=== PATIENT | male | born 1970 | race American Indian/Alaskan Native ===

== ENCOUNTER 2016-09-27 00:37 | Emergency (ER) | payer OTHER ==
[~2016-09-27] VITALS: Ht 170.2 cm; Wt 98.0 kg
[~2016-09-27 00:37] MED LIST: CEPHALEXIN500 MG PO; CLARITIN10 MG PO; CYCLOBENZAPRINE10 MG PO; EPIPEN 2-P0.3 MG/0.3 IM; FLONASE2 SPRAY NS; HYDROCODON-ACE1 EAC8 PO; KEFLEX500 MG PO; LISINOPRIL10 MG PO; MELOXICAM15 MG PO; NAPRELAN750 MG PO; NAPROXEN500 MG PO; NITROGLYCERIN0.4 MG SL; NITROSTAT0.4 MG; NORCO 10-325 T1 EACH PO; NORCO 5-325 TA1 EACH PO; PROVENTIL HFA6.7 GM INH; STOMACH MED; TESSALON PERLE100 MG PO; TRAMADOL HCL50 MG PO; ULTRAM50 MG PO; ZITHROMAX250 MG PO
[2016-09-27] MEDS ORDERED: GABAPENTIN100 MG PO (00:43)
[2016-09-27] MEDS ORDERED: GLUCOPHAGE XR750 MG PO (00:56)
== END 2016-09-27 01:15 | disposition home or self-care (01) ==
LOC: ED 00:37
DX: T78.40XA Allergy, unspecified, initial encounter (principal); M25.512 Pain in left shoulder; G89.29 Other chronic pain; I10 Essential (primary) hypertension; I25.2 Old myocardial infarction; Z90.49 Acquired absence of other specified parts of digestive tract; Z79.899 Other long term (current) drug therapy; Z91.018 Allergy to other foods
CPT/HCPCS: 99283

== ENCOUNTER 2018-04-18 21:11 | Emergency (ER) | payer OTHER ==
[~2018-04-18] VITALS: Ht 170.2 cm; Wt 113.4 kg
[~2018-04-18 21:11] MED LIST changes: +GABAPENTIN100 MG PO; +GLUCOPHAGE XR750 MG PO
--- OUTSIDE RECORDS SUMMARY | 2018-04-18 21:14 | XMS ---
PreManage Notification: AMENA CRESPO Security Inspector Technician Events No recent Security Events currently on file CRITERIA MET - Group Notification CARE PROVIDERS BRANDON CRESPO Physician Muskrat Trapper 09/26/2016-Current PHONE: Unknown Perry De La O MD Treatment Current PHONE: Unknown BRANDON CRESPO Primary Care 09/27/2016-Current PHONE: [phone] CHANG SUN Primary Care 09/27/2016-[facility] PHONE: [phone] Amy Chapman - Case or Manager English Current [facility] PHONE: [phone] Demar Marquez, Primary Care [facility] PHONE: [phone] Renee has no Care Guidelines for this patient. Care History Substance Use/Overdose 04/23/2016 [facility] BE CAREFUL PRESCRIBING NARCOTICS. THIS PATIENT HAS A FAILED PAIN CONTRACT WITH PCP. HE RECEIVED HYDROCODONE FROM A OMER OBRIEN AND THIS WAS FILLED AT [facility] ON 03/19/16. E.D. VISIT COUNT (12 MO.) 2 [facility] TOTAL 2 NOTE: Visits indicate total known visits. ED/C VISIT TRACKING (12 MO.) 04/18/2018 21:11 [facility] [place] TYPE: Emergency COMPLAINT: - COLD SYMPTOMS 09/29/2017 16:04 [facility] [place] TYPE: Emergency COMPLAINT: - INSECT BITE L LEG/MSE TO CLINIC DIAGNOSES: - Insect bite (nonvenomous), left thigh, initial encounter - Bitten or stung by nonvenomous insect and other nonvenomous arthropods, initial encounter INPATIENT VISIT TRACKING (12 MO.) No inpatient visits to display in this time frame [id number]
[2018-04-18] MEDS ORDERED: AUGMENTIN 875-1 EACH PO (23:46)
== END 2018-04-19 00:11 | disposition home or self-care (01) ==
LOC: ED 21:11
DX: J01.90 Acute sinusitis, unspecified (principal); I10 Essential (primary) hypertension; I25.2 Old myocardial infarction; Z90.49 Acquired absence of other specified parts of digestive tract; Z88.5 Allergy status to narcotic agent; Z91.018 Allergy to other foods; Z79.899 Other long term (current) drug therapy
CPT/HCPCS: 99283

== ENCOUNTER 2019-05-19 19:13 | Emergency (ER) | payer OTHER ==
[~2019-05-19] VITALS: Ht 170.2 cm; Wt 113.4 kg
[~2019-05-19 19:13] MED LIST changes: +AUGMENTIN 875-1 EACH PO
--- OUTSIDE RECORDS SUMMARY | 2019-05-19 19:16 | XMS ---
PreManage Notification: AMENA CRESPO Security Sergeant Of Corrections Events No recent Security Events currently on file CRITERIA MET - Group Notification CARE PROVIDERS BRANDON CRESPO 09/27/2016-Current PHONE: Unknown DOCTOR PIERCE Primary Care Current PHONE: Unknown OSCAR CARLTON Primary Care [facility] PHONE: Unknown LANIE ADKINS Primary Care Current PHONE: Unknown Perry De La O MD Treatment Current PHONE: Unknown BRANDON CRESPO Primary Care 09/27/2016-Current PHONE: [phone] CHANG SUN Primary Care 09/27/2016-[facility] PHONE: [phone] Amy Hayes or Finished Cigar Maker [facility] PHONE: [phone] Lanie Adkins [facility] PHONE: [phone] Renee has no Care Guidelines for this patient. Care History Substance Use/Overdose 04/23/2016 [facility] BE CAREFUL PRESCRIBING NARCOTICS. THIS PATIENT HAS A FAILED PAIN CONTRACT WITH PCP. HE RECEIVED HYDROCODONE FROM A OMER OBRIEN AND THIS WAS FILLED AT [facility] ON 03/19/16. E.D. VISIT COUNT (12 MO.) [address] TOTAL 4 NOTE: Visits indicate total known visits. ED/UCC VISIT TRACKING (12 MO.) 05/19/2019 19:14 [facility] [place] TYPE: Emergency COMPLAINT: - ABDOMINAL PAIN/BLOOD IN STOOL 10/24/2018 01:25 [facility] [place] TYPE: Emergency COMPLAINT: - Shortness of breath DIAGNOSES: 1. Allergy, unspecified, initial encounter 2. Exposure to other specified factors, initial encounter 08/09/2018 00:16 [facility] [place] TYPE: Emergency COMPLAINT: - N/V, LEG PAIN - Pain in left knee - Diarrhea, unspecified - Unspecified abdominal pain DIAGNOSES: 1. Pain in left knee 2. Fall in (into) shower or empty bathtub, initial encounter 3. Diarrhea, unspecified 4. Unspecified abdominal pain 07/27/2018 18:17 [facility] [place] TYPE: Emergency DIAGNOSES: - Strain of unsp musc/tend at lower leg level, left leg, init - knee pain INPATIENT VISIT TRACKING (12 MO.) No inpatient visits to display in this time frame [id number]
== END 2019-05-19 21:02 | disposition home or self-care (01) ==
LOC: ED 19:13
DX: K62.5 Hemorrhage of anus and rectum (principal); I10 Essential (primary) hypertension; I25.2 Old myocardial infarction
CPT/HCPCS: 80053; 83690; 85025; 85610; 85730; 99284

== ENCOUNTER 2020-01-20 12:13 | Emergency (ER) | payer OTHER ==
[~2020-01-20] VITALS: Ht 170.2 cm; Wt 113.4 kg
--- OUTSIDE RECORDS SUMMARY | 2020-01-20 12:16 | XMS ---
PreManage Notification: AMENA CRESPO Security Repairer Helper Events No recent Security Events currently on file CRITERIA MET - Group Notification CARE PROVIDERS BRANDON CRESPO Physician Project Surveyor 09/27/2016-Current PHONE: Unknown Renee has no Care Guidelines for this patient. Care History Substance Use/Overdose 04/23/2016 [facility] BE CAREFUL PRESCRIBING NARCOTICS. THIS PATIENT HAS A FAILED PAIN CONTRACT WITH PCP. HE RECEIVED HYDROCODONE FROM A OMER OBRIEN AND THIS WAS FILLED AT [facility] ON 03/19/16. E.Lindsey VISIT COUNT (12 MO.) 2 [facility]. TOTAL 2 NOTE: Visits indicate total known visits. ED/UCC VISIT TRACKING (12 MO.) 01/20/2020 12:13 [facility] [place] TYPE: Emergency COMPLAINT: - SOB 05/19/2019 19:14 [facility] [place] TYPE: Emergency COMPLAINT: - ABDOMINAL PAIN/BLOOD IN STOOL DIAGNOSES: - Hemorrhage of anus and rectum - Essential (primary) hypertension - Old myocardial infarction - Hemorrhage of anus and rectum INPATIENT VISIT TRACKING (12 MO.) No inpatient visits to display in this time frame [id number]
[2020-01-20] MEDS ORDERED: LISINOPRIL20 MG PO (12:29)
[2020-01-20] MEDS ORDERED: VENTOLIN HFA18 GM INH (12:52)
[2020-01-21] MEDS ORDERED: ADVIL200 MG PO (18:06)
== END 2020-01-20 13:19 | disposition home or self-care (01) ==
LOC: ED 12:13
DX: U07.1 COVID-19 (principal); J40 Bronchitis, not specified as acute or chronic; I10 Essential (primary) hypertension; I25.2 Old myocardial infarction; Z88.5 Allergy status to narcotic agent
CPT/HCPCS: 99284

== ENCOUNTER 2020-01-21 17:34 | Inpatient (IN) | payer OTHER ==
[~2020-01-21] VITALS: Ht 170.2 cm; Wt 115.5 kg
[~2020-01-21 17:34] MED LIST changes: +LISINOPRIL20 MG PO; +VENTOLIN HFA18 GM INH
--- OUTSIDE RECORDS SUMMARY | 2020-01-21 17:38 | XMS ---
PreManage Notification: AMENA CRESPO Security Bull Float Finisher Events No recent Security Events currently on file CRITERIA MET - Group Notification - [facility] - 2 Visits in 30 Days CARE PROVIDERS BRANDON CRESPO Physician Slot Machine Key Person 09/27/2016-Current PHONE: Unknown Renee has no Care Guidelines for this patient. Care History Substance Use/Overdose 04/23/2016 [facility] BE CAREFUL PRESCRIBING NARCOTICS. THIS PATIENT HAS A FAILED PAIN CONTRACT WITH PCP. HE RECEIVED HYDROCODONE FROM A [employer] AND THIS WAS FILLED AT [facility] ON 03/19/16. E.D. VISIT COUNT (12 MO.) 3 [facility] TOTAL 3 NOTE: Visits indicate total known visits. ED/UCC VISIT TRACKING (12 MO.) 01/21/2020 17:35 [facility] [place] TYPE: Emergency COMPLAINT: - MULTIPLE COMPLAINTS 01/20/2020 12:13 [facility] [place] TYPE: Emergency COMPLAINT: - SOB 05/19/2019 19:14 [facility] [place] TYPE: Emergency COMPLAINT: - ABDOMINAL PAIN/BLOOD IN STOOL DIAGNOSES: - Hemorrhage of anus and rectum - Essential (primary) hypertension - Old myocardial infarction - Hemorrhage of anus and rectum INPATIENT VISIT TRACKING (12 MO.) No inpatient visits to display in this time frame [id number]
[2020-01-21] MEDS ORDERED: ADVIL200 MG PO (18:06)
--- NOTE | 2020-01-21 23:13 | NUR ---
ASSESSMENT, VS AND I&O COMPLETED. IV WNL, CDI, FLUSHED WELL. SCHEDULED MEDS PROVIDED. GCS 15, A&O X4. LUNGS CLEAR IN ALL LOBES, DIMINISHED IN LOWER LOBES. HEART TONES REGULAR. ABD SOFT, NONTENDER, PT STATES NORMAL, BOWEL TONES ACTIVE. CMS INTACT. SPO2 94% ON 2L NC. SNACKS AND DRINKS PROVIDED. NO OTHER NEEDS AT THIS TIME. CALL LIGHT IN REACH.
--- NOTE | 2020-01-22 02:32 | NUR ---
ASSESSMENT, VS AND I&O COMPLETED. GCS 15, A&O X4. IV WNL. UNABLE TO LISTEN TO LUNGS, HEART AND BOWEL TONES DUE TO PAPR. CMS INTACT. PT STATES HE "FEELS BETTER". NC @ 2L, SPO2 95%. PT DENIES SOB. NO OTHER NEEDS AT THIS TIME. CALL LIGHT IN REACH.
--- NOTE | 2020-01-22 04:05 | NUR ---
PT RESTING IN BED, EYES CLOSED. RR EVEN, UNLABORED. NC @ 2L. CALL LIGHT IN REACH.
--- NOTE | 2020-01-22 08:37 | EKG ---
[facility] [address] [place], [place] [address] Signed Sinus tachycardia Otherwise normal ECG When compared with ECG of 02-MAR-2016 00:48, No significant change was found Confirmed by ZULEYKA CALVERT MD ([id number]) on 01/22/2020 7:17:36 AM Electronically Signed By: ZULEYKA CALVERT MD 01/22/20 0837 PATIENT NAME: AMENA CRESPO SIDRA Electrocardiogram DATE OF : 70 PHYSICIAN: ZULEYKA CALVERT MD REPORT #: [id number] REPORT IS CONFIDENTIAL AND NOT TO BE RELEASED WITHOUT AUTHORIZATION
--- NOTE | 2020-01-22 10:26 | NUR ---
PATIENT IND IN ROOM. CALL LIGHT IN REACH. NO FURTHER NEEDS AT THIS TIME. AM CARE AND ORAL CARE ITEMS PROVIDED.
--- NOTE | 2020-01-22 13:58 | NUR ---
PT UP TO BATHROOM, SPOT CHECK O2-88-91% ON 2L/NC. O2 INCREASED TO 3L/NC AFTER SPEAKING WITH DR VÁSQUEZ. PT DOES USE INCENTIVE SPIROMETER BUT C/O FATIGUE WITH MUCH ACTIVITY. GOOD APPETITE, AND TAKING FLUIDS WELL.
--- NOTE | 2020-01-22 14:00 | NUR ---
O2 4L/NC, PT SITTING UP AT BEDSIDE, C/O HAVING TROUBLE TAKING DEEP BREATH, C/O FEELING TORED AND WEAK. CONT. TO BE INDEP IN ROOM, ENC. PT TO REST AND POSITION FOR EASY BREATHING, HOB 45 DEG. CALL LIGHT IN EASY REACH.
--- NOTE | 2020-01-22 18:00 | NUR ---
PT PLACED ON OXYMASK 10 L, OXIMETER 94-95% PER RT RECOMMENDATION. PT EATING DINNER. BUT IS HAVING INCREASED ANXIETY.
--- NOTE | 2020-01-22 19:00 | NUR ---
SPOKE WITH DR CHA ABOUT PT NEEDING INCREASED O2 AND OXYMASK, HE WILL BE DOWN TO ASSESS PT.
--- NOTE | 2020-01-22 19:30 | NUR ---
CALL PLACED TO RT TO HAVE THEM ASSESS PT, HE CONT. TO C/O SOB AND WEAKNESS.
--- NOTE | 2020-01-22 19:40 | NUR ---
REPORT RECEIVED FROM DAY SHIFT RN. DR. CHA ORDERED STAT ABG. RT IN ROOM TO DRAW. DR. CHA TO FLOOR TO ASSESS PT. ORDERED PT TO TRANSFER TO CCU. PT LYING IN BED AT THIS TIME. SpO2 94% ON 10L/OXY MASK. HR 100'S.
--- NOTE | 2020-01-22 20:30 | NUR ---
PATIENT MOVED FROM MS TO CCU. PATIENT SWITCHED TO VAPOTHERM AT 25L 60% Fi02 BY AAMIR ARRIAGA. EDUCATION DONE FOR PRONING. ASSISTED PATIENT INTO PRONE POSITION WHICH HE APPEARS TO TOLERATE WELL. VS STABLE. RT AT BEDSIDE. CALL LIGHT IN REACH.
--- NOTE | 2020-01-22 20:39 | NUR ---
REPORT GIVEN TO CCU RN. CCU RN AND [place] OG TRASFERRED PT TO CCU AT THIS TIME.
--- NOTE | 2020-01-22 21:15 | NUR ---
PATIENT UP TO BEDSIDE TO VOID AND THEN BACK TO PRONE POSITION. PATIENT FELT SOB AND ANXIOUS. O2 SATS 86%, QUICKLY IMPROVED ABOUT 90% ON VAPOTHERM 25L 60% Fi02. PATIENT HAS CELLPHONE IN HAND AND CALL LIGHT IN REACH. LIGHTS DIMMED. PATIENT WILL CALL FOR ANY CONERNS OR NEEDS. AGREES TO PRONE LONG POSSIBLE.
--- NOTE | 2020-01-22 23:11 | NUR ---
PROVIDED PATIENT WITH FRESH ICE WATER. PATIENT TOLERATING PRONE POSITION WATCHING VIDEOS ON HIS PHONE. PATIENT OFFERED TO REPOSITION BUT PATIENT STATES "I WANT TO GET BETTER, I'LL STAY LIKE THIS".
--- NOTE | 2020-01-23 02:00 | NUR ---
PATIENT CONTINUES TO TOLERATE CURRENT VAPOTHERM SETTINGS, O2 SAT 94%, RR 20. VAPOTHERM 25L 60% Fi02. PATIENT OUT OF PRONE POSITION.
--- NOTE | 2020-01-23 05:18 | NUR ---
PATIENT ASLEEP. URINAL EMPTIED OF 300ML OF YELLOW CLEAR URINE.
--- NOTE | 2020-01-23 06:00 | NUR ---
MORNING LABS DRAWN. PATIENT IN PRONE POSITION. TOLERATING WELL. VAPOTHERM 25L 60% Fi02. RR 16-18. PATIENT AFEBRILE.
--- NOTE | 2020-01-23 07:00 | NUR ---
Report received, orders acknowledged.
--- NOTE | 2020-01-23 07:47 | NUR ---
RT in room to administer breathing tx
--- NOTE | 2020-01-23 08:00 | NUR ---
PATIENT RESTING IN BED WAITING FOR BREAKFAST. CALL LIGHT WITHIN REACH NO FUTHER NEEDS AT THIS TIME.
--- NOTE | 2020-01-23 08:00 | NUR ---
Patient laying on left side with vapotherm in place. Settings of 25L and 60% FiO2 with an SpO2 in the mid to low 90's. Vital signs taken, assessment complete. Patient sits up at edge of bed, SOB with exertion. Patient encouraged to use IS, 250 mls noted with IS. Patient has many questions regarding coronavirus, intubation, and medications. All questions answered to best of ability. Dry cough noted. Patient eating breakfast. AM medications given, IV remdesivir infusing. Denies needs at this time, call light within reach.
--- NOTE | 2020-01-23 09:45 | NUR ---
PATIENT LINENS CHANGED. FACE WASHED AND ORAL CARE DONE. PARTIAL BED BATH COMPLETE. CALL LIGHT WITHIN REACH. NO FUTHER NEEDS AT THIS TIME.
--- NOTE | 2020-01-23 10:40 | NUR ---
Dr. Urbano in room to assess patient and discuss POC
--- NOTE | 2020-01-23 11:00 | NUR ---
Patient vapotherm settings adjusted to 55% FiO2 from 60% and remains at 25L. Patient laying in prone position, SpO2 in the upper 90's. Denies needs at this time, call light within reach.
--- NOTE | 2020-01-23 12:20 | NUR ---
Lunch delivered, patient sitting up at edge of bed with feet on floor. Vapotherm in place, settings at 25L and 55% FiO2. SpO2 in the mid-90's. Patient denies pain or SOB. Urinal emptied of 250 mls of sheba urine. Denies needs, call light within reach.
--- NOTE | 2020-01-23 13:00 | NUR ---
RT in room adjusting vapotherm settings. Currently settings now at 5.0L and 100% FiO2. SpO2 in the upper 90's. No work of breathing noted, patient denies SOB. Will continue to monitor patient with new vapotherm settings.
--- NOTE | 2020-01-23 14:38 | NUR ---
Patient laying on left side, respirations even and unlabored. Vapotherm settings at 5.0L and 100% Fi02, SpO2 ranging from 95-98%. Patient denies SOB and states "I feel better now than I did earlier!" Patient smiling and in good spirits. Denies needs at this time, call light within reach.
--- NOTE | 2020-01-23 15:31 | NUR ---
Patient proning in bed with vapotherm in place. Settings at 5.0L and 100% FiO2, SpO2 of 98%. Call light within reach.
--- NOTE | 2020-01-23 17:30 | NUR ---
Patient proning in bed with vapotherm in place, 5.0L and 100% FiO2, SpO2 of 99%. Dinner delivered. Vital signs taken, assessment complete. Patient reports SOB improved from earlier this AM. Denies needs at this time, call light within reach.
--- NOTE | 2020-01-23 18:46 | NUR ---
Patient laying in prone position. Vapotherm in place with settings of 5.0L and 100% FiO2, SpO2 of 99%. Denies needs, call light within reach.
--- NOTE | 2020-01-23 20:35 | NUR ---
PT KNEELING IN BED AFTER VOIDING, GETTING READY TO PRONE AGAIN. STATES WAS SOB WITH EXERTION OF CHANGING POSITION AND VOIDING. BP TAKEN WHILE PT KNEELING AND WAS 181/93. STATES DOES HAVE HX OF HTN. SL RAC LEAKING WHEN FLUSHED, DC'D. SATS DID BREIFLY DEC TO 89 WHEN PT FIRST GOT INTO PRONE POSITION BUT BACK TO UPPPER 90'S WITHIN MINUTES.
--- NOTE | 2020-01-23 21:48 | NUR ---
IS NOW LAYING ON L SIDE, SATS 94-95%.
--- NOTE | 2020-01-23 22:30 | NUR ---
PATIENT TOLERATING VAPOTHERM AT 5L 100% Fi02. PATIENT IS INDEPENDENT TO THE BEDSIDE TO VOID AND CONTINUES TO TANGLE HIS CORDS WHEN HE IS UP. ASSISTED PATIENT TO REMOVE CARDIAC LEADS AND BP CUFF AT THIS TIME. PULSE OX IN PLACE. TITRATED TO HIGH FLOW NC AT 8L. PATIENT TOLERATED WELL. WILL CONTINUE TO MONITOR.
--- NOTE | 2020-01-23 22:57 | NUR ---
UPDATE GIVEN TO
--- NOTE | 2020-01-24 02:53 | NUR ---
PT ARRIVED FROM CCU AT AROUND 0230. V/S AT THIS TIME ARE WDL, PT ON 6L O2 HIGH FLOW. NO NEW CONCERNS NOTED AT THIS TIME.
--- NOTE | 2020-01-24 03:33 | NUR ---
PT IN BED. CURTAIN PULLED. O2 SATS AT 97% 6L O2 HIGH FLOW.
--- NOTE | 2020-01-24 05:00 | NUR ---
PT OVERALL HAD AN UNEVENTFUL NIGHT. V/S ARE WDL. PT HAS REMAINED ON 6L HIGH FLOW NC. LOBES ARE CLEAR BUT DIMINISHED IN THE BASES. PT IS PRONING SELF TO THE BEST OF HIS ABILITY. NO NEW CONCERNS WERE NOTED THIS SHIFT.
--- NOTE | 2020-01-24 09:00 | NUR ---
PT SITTING UP IN BED 02 TURNED DOWN TO 3LPM VIA NC. REMAINED WITH PT FOR ASSESSMENT AND CHANRTING. SATS REMAIN AT 94% PT ABLE TO DEMONSTRATE USE OF I/S ENCOURAGED HIM TO CONTINUE TO USE IT AT REGULAR INTERVALS AND BE UP OUT OF BED. PT VERBALIZES UNDERSTANDING.
--- NOTE | 2020-01-24 10:30 | NUR ---
SATS REMAIN AT 93% PT DENIES ANY SOB OR DISCOMFORTS. TOLERATES 100% OF MORNING MEAL SIVA FURTHER NEEDS OF. PT TO SHOWER WELL TOLERATED. PERSONAL CARE ITEMS PROVIDED.
--- NOTE | 2020-01-24 10:36 | NUR ---
PATIENT UP TO SHOWER, SBA. LINENS CHANGED. NEW GOWN AND SOCKS PROVIDED. PATIENT IND IN SHOWER. AM CARE, ORAL CARE, SKIN CARE, SHAMPOO, SHAVE, ANJELICA CARE DONE. RN IN ROOM BEFORE SHOWER, PATIENT STATING BETWEEN 91 AND 92 ON 2.5L OF O2. RN BUMPED PATIENT UP TO 3L O2 FOR SHOWER. PATIENT NOW BACK TO BED. CALL LIGHT IN REACH. NO FURTHER NEEDS AT THIS ITME.
[2020-01-24] MEDS ORDERED: ZESTRIL20 MG PO (11:59)
--- NOTE | 2020-01-24 12:00 | NUR ---
MED REC COMPLETE
--- NOTE | 2020-01-24 13:00 | NUR ---
DR CHA IN TO SEE PT, HE IS UP INDEPENDANTLY IN THE ROOM. PLAN OF CARE DISCUSSED ALL QUESTIONS ANSWERED. PT SATS 95% ON 2L 02NC
--- NOTE | 2020-01-24 14:01 | NUR ---
UNABLE TO VISIT DUE TO PRECAUTIONS, WILL FOLLOW NEEDED
--- NOTE | 2020-01-24 15:25 | NUR ---
PT SATS MID TO HIGH 90'S 02 TITRATED TO 2 LPM. CONTINUES TO MAINTAIN SATS MID 90'S. PT STATES HE FEELS WELL ENOUGH TO GO HOME, BUT UNDERSTANDS HE NEEDS ANOTHER DOSE OF REMDESAVERE FIRST, HE ANTICIPATES GOING TOMORROW. ENCOURAGED HIM TO CONTINUE TO USE I/S AND WILL TITRATE 02 FURTHER THIS AFTERNOON.
--- NOTE | 2020-01-24 17:14 | NUR ---
PT CONTINUES TO SAT MID 90'S ON 2 LNC. UP IN ROOM STATES HE FEELS FINE, AND IS ANXIOUS TO GO HOME TOMORROW. EVENING MEAL IS ORDERED
--- NOTE | 2020-01-24 18:02 | NUR ---
PATIENT IND IN ROOM. PATIENT NOW BACK TO BED WATCHING TV. CALL LIGHT IN REACH. NO FURTHER NEEDS AT THIS TIME.
--- NOTE | 2020-01-24 20:00 | NUR ---
V/S ARE WDL, PT NOW ON RA FOR A TRAIL AND SATING AROUND 91%. ALL LOBES ARE CLEAR OVERALL AND NO OTHER ISSUES WERE NOTED WITH THE ASSESSMENT. PT HAS NC AT BEDSIDE IF NEEDED. WILL CONTINUE TO MONITOR.
--- NOTE | 2020-01-24 20:47 | NUR ---
PT O2 SATS FELL TO 87% ON RA. PT IS BACK ON 2L HIGH FLOW NC WITH O2 SATS NOW IN THE MID 'S.
--- NOTE | 2020-01-24 22:00 | NUR ---
PT AT THIS TIME IS SLEEPING WITH NC ON 2L. NO NEW ISSUES NOTED AT THIS TIME.
--- NOTE | 2020-01-25 00:06 | NUR ---
PT IS SLEEPING. NO NEW CONCERNS NOTED.
--- NOTE | 2020-01-25 02:50 | NUR ---
PT IS STILL SLEEPING WITH O2 SATS AT 94% ON THE HIGH FLOW CANNULA.
--- NOTE | 2020-01-25 04:03 | NUR ---
PT IS SLEEPING AT THIS TIME.
--- NOTE | 2020-01-25 07:20 | NUR ---
PT DID FAIL RA TRIAL AT START OF SHIFT. PT HAS REMAINED ON 1L O2 NC SINCE THEN IS DOING WELL. NO OTHER ISSUES WERE NOTED LAST NIGHT.
--- NOTE | 2020-01-25 08:02 | NUR ---
PT RESTING IN BED ENCOURAGED TO GET UP TO THE CHAIR USE I/S AND PREPARE TO TRY ROOM AIR. PT VERBALIZES UNDERSTANDING. DENIES SOB OR DISCOMFORTS.
--- NOTE | 2020-01-25 08:30 | NUR ---
Call from Kenzie at [facility] clinic they have contact [facility] for O2. NOtified I have not been to report yet, and I am unsure if pt will need or or will dc today. Discussed I will call her after report and after Dr. Urbano has made rounds.
--- NOTE | 2020-01-25 09:44 | NUR ---
PT TOLERATING RA, SATS 92-95% AGREES HE IS READY TO GO HOME. PERSONAL CARE ITEMS PROVIDED, PT DENIES OTHER NEEDS.
[2020-01-25] MEDS ORDERED: DEXAMETHASONE6 MG PO (10:21)
--- NOTE | 2020-01-25 10:24 | NUR ---
Requested 02 qualifier and notified by Rn, pt has been off 02 since during the night and is sating at 93% on RA. Dr Urbano cancelled the qualifier. Spoke with Costa and he states he has been doing well. Was sick on Jan.07 and has been in isolation since that time. Plans on returning home today and his will pick him up. Denies any needs plans on dc today.
--- NOTE | 2020-01-25 10:28 | NUR ---
Called Kenzie at [facility], updated pt is no longer requiring 02 and plans on dc to home today, his will transport him.
--- NOTE | 2020-01-25 11:36 | NUR ---
PT CONTINUED TO SAT MID TO HIGH 90'S ON ROOM AIR ALL MORNING. DENIES SOB, STATES HE FEELS WELL DENIES CONCERNS R/T DC. PT ENCOURAGED TO PHONE MED-SURG IF HE HAS ANY F/U QUESTIONS LATER. PT VERBALIZES UNDERSTANDING OF DC INSTRUCTIONS. AGREES TO TAKE RX PRESCRIBED VERBALIZES UNDERSTANDING OF WHY. MASK PROVIDED. PT ENCOURAGED STRONGLY TO CONTINUE QUARANTINE TO NOT PASS COVID TO OTHERS
== END 2020-01-25 11:20 | disposition home or self-care (01) | DRG 177 ==
LOC: ED 17:34 → MS 20:16 → CCU 01-22 20:41 → MS 01-24 02:47
PROVIDERS: ADMIT Internal Medicine; ATTEND Internal Medicine
PROC: XW033E5 Introduction of Remdesivir Anti-infective into Peripheral Vein, Percutaneous Approach, New Technology Group 5 (ICD-10-PCS; principal; 2020-01-21)
PROC: XW033E5 Introduction of Remdesivir Anti-infective into Peripheral Vein, Percutaneous Approach, New Technology Group 5 (ICD-10-PCS; 2020-01-22)
PROC: XW033E5 Introduction of Remdesivir Anti-infective into Peripheral Vein, Percutaneous Approach, New Technology Group 5 (ICD-10-PCS; 2020-01-23)
PROC: XW033E5 Introduction of Remdesivir Anti-infective into Peripheral Vein, Percutaneous Approach, New Technology Group 5 (ICD-10-PCS; 2020-01-24)
PROC: XW033E5 Introduction of Remdesivir Anti-infective into Peripheral Vein, Percutaneous Approach, New Technology Group 5 (ICD-10-PCS; 2020-01-25)
DX: U07.1 COVID-19 (principal); J12.89 Other viral pneumonia; J96.01 Acute respiratory failure with hypoxia; I10 Essential (primary) hypertension; I25.2 Old myocardial infarction; I25.10 Atherosclerotic heart disease of native coronary artery without angina pectoris; Z79.899 Other long term (current) drug therapy; Z88.5 Allergy status to narcotic agent
CPT/HCPCS: 71045; 80048; 80053; 82803; 83605; 83615; 83735; 83880; 84484; 85025; 85379; 90686; 93005; 93010; 94640; 94762; 94799; 96374; 99285-25; J1100; J1650; J7030; J7050; J8540

== ENCOUNTER 2020-04-01 18:48 | Emergency (ER) | payer OTHER ==
[~2020-04-01] VITALS: Ht 170.2 cm; Wt 113.4 kg
[~2020-04-01 18:48] MED LIST changes: +ADVIL200 MG PO; +DEXAMETHASONE6 MG PO; +ZESTRIL20 MG PO
--- OUTSIDE RECORDS SUMMARY | 2020-04-01 18:50 | XMS ---
PreManage Notification: AMENA CRESPO Security Barrel Bung Remover And Dumper Events No recent Security Events currently on file CRITERIA MET - Group Notification CARE PROVIDERS BRANDON CRESPO Physician Housekeeping And Laundry Team Leader 09/27/2016-Current PHONE: Unknown Renee has no Care Guidelines for this patient. Care History Medical/Surgical 01/24/2020 [facility] - PATIENT IS [facility] ELIGIBLE, \T\middot;\T\nbsp; PLEASE REFER PATIENT TO [facility] FOR NON EMERGENT MEDICAL NEEDS. \T\middot;\T\nbsp; [facility] CAN SEE PATIENTS SAME DAY FOR APTS IF PATIENT CALLS FIRST THING IN THE MORNING. Substance Use/Overdose 04/23/2016 [facility] BE CAREFUL PRESCRIBING NARCOTICS. THIS PATIENT HAS A FAILED PAIN CONTRACT WITH PCP. HE RECEIVED HYDROCODONE FROM A OMER OBRIEN AND THIS WAS FILLED AT [facility] ON 03/19/16. E.D. VISIT COUNT (12 MO.) [address] [place] [address] TOTAL 4 NOTE: Visits indicate total known visits. ED/UCC VISIT TRACKING (12 MO.) 04/01/2020 18:[address] [facility] [place] TYPE: Emergency COMPLAINT: - INJURED FINGER 01/21/2020 17:[address] [facility] TYPE: Emergency COMPLAINT: - MULTIPLE COMPLAINTS 01/20/2020 12:[address] [facility] TYPE: Emergency COMPLAINT: - SOB DIAGNOSES: - Old myocardial infarction - Shortness of breath - Allergy status to narcotic agent - COVID-19 - Bronchitis, not specified as acute or chronic - Essential (primary) hypertension 05/19/2019 19:14 [facility] [place] TYPE: Emergency COMPLAINT: - ABDOMINAL PAIN/BLOOD IN STOOL DIAGNOSES: - Hemorrhage of anus and rectum - Essential (primary) hypertension - Old myocardial infarction - Hemorrhage of anus and rectum INPATIENT VISIT TRACKING (12 MO.) 01/21/2020 20:16 [facility] [place] TYPE: Medical Surgical COMPLAINT: - HYPOXEMIA, COVID 19 DIAGNOSES: - Other care home (current) drug therapy - Acute respiratory failure with hypoxia - Other viral pneumonia - Allergy status to narcotic agent - COVID-19 - Old myocardial infarction - Atherosclerotic heart disease of [place] coronary artery without angina pectoris - Shortness of breath - Essential (primary) hypertension [email or web address]
== END 2020-04-01 20:01 | disposition home or self-care (01) ==
LOC: ED 18:48
DX: S60.141A Contusion of right ring finger with damage to nail, initial encounter (principal); W22.8XXA Striking against or struck by other objects, initial encounter; I10 Essential (primary) hypertension; I25.2 Old myocardial infarction; Z88.5 Allergy status to narcotic agent; Z79.899 Other long term (current) drug therapy
CPT/HCPCS: 11740; 99283-25

== ENCOUNTER 2020-09-16 05:34 | Emergency (ER) | payer OTHER ==
[~2020-09-16] VITALS: Ht 170.2 cm; Wt 113.4 kg
--- OUTSIDE RECORDS SUMMARY | 2020-09-16 05:38 | XMS ---
PreManage Notification: AMENA CRESPO Security Dermatologist Managing Partner Events No recent Security Events currently on file CRITERIA MET - Group Notification CARE PROVIDERS BRANDON CRESPO Physician Electrical And Instrumentation Mechanic 09/27/2016-Current PHONE: Unknown Renee has no Care Guidelines for this patient. Care History Substance Use/Overdose 04/23/2016 [facility] BE CAREFUL PRESCRIBING NARCOTICS. THIS PATIENT HAS A FAILED PAIN CONTRACT WITH PCP. HE RECEIVED HYDROCODONE FROM A [employer] [facility] AND THIS WAS FILLED AT [facility] ON 03/19/16. Medical/Surgical 01/24/2020 [facility] - PATIENT IS [facility] ELIGIBLE, \T\middot;\T\nbsp; PLEASE REFER PATIENT TO [facility] FOR NON EMERGENT MEDICAL NEEDS. \T\middot;\T\nbsp; [facility] CAN SEE PATIENTS SAME DAY FOR APTS IF PATIENT CALLS FIRST THING IN THE MORNING. E.D. VISIT COUNT (12 MO.) [address] [place] [address] TOTAL 4 NOTE: Visits indicate total known visits. ED/UCC VISIT TRACKING (12 MO.) 09/16/2020 05:[address] 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 - Striking against or struck by other objects, initial encounter - Allergy status to narcotic agent - Old myocardial infarction - Pain in right finger(s) 01/21/2020 17:35 [facility] [place] TYPE: Emergency COMPLAINT: - MULTIPLE COMPLAINTS 01/20/2020 12:13 [facility] [place] TYPE: Emergency COMPLAINT: - SOB DIAGNOSES: - Old myocardial infarction - Allergy status to narcotic agent - Shortness of breath - Allergy status to narcotic agent - RINKUID- - Bronchitis, not specified as acute or chronic - Essential (primary) hypertension INPATIENT VISIT TRACKING (12 MO.) 01/21/2020 20:16 [facility] [place] TYPE: Medical Surgical COMPLAINT: - HYPOXEMIA, COVID 19 DIAGNOSES: - Other long wall mining machine helper (current) drug therapy - Acute respiratory failure with hypoxia - Other viral pneumonia - Allergy status to narcotic agent - COVID-19 - Old myocardial infarction - Atherosclerotic heart disease of [place] coronary artery without angina pectoris - Shortness of breath - Allergy status to narcotic agent - Essential (primary) hypertension [id number]
--- NOTE | 2020-09-16 18:57 | EKG ---
[facility] [address] [facility] [place] [address] Signed Normal sinus rhythm Normal ECG When compared with ECG of 21-JAN-2020 18:59, No significant change was found Confirmed by ZULEYKA CALVERT MD ([id number]) on 09/16/2020 6:57:00 PM Electronically Signed By: ZULEYKA CALVERT MD 09/16/201856 PATIENT NAME: AMENA CRESPO SIDRA Electrocardiogram DATE OF : 70 PHYSICIAN: ZULEYKA CALVERT MD REPORT #: [id number] REPORT IS CONFIDENTIAL AND NOT TO BE RELEASED WITHOUT AUTHORIZATION
== END 2020-09-16 07:30 | disposition home or self-care (01) ==
LOC: ED 05:34
DX: R07.2 Precordial pain (principal); I10 Essential (primary) hypertension; I25.2 Old myocardial infarction; Z86.16 Personal history of COVID-19; Z88.5 Allergy status to narcotic agent; Z79.899 Other long term (current) drug therapy
CPT/HCPCS: 71045; 80053; 83735; 84484; 85025; 93005; 93010; 99285-25

== ENCOUNTER 2020-11-05 19:46 | Emergency (ER) | payer OTHER ==
[~2020-11-05] VITALS: Ht 170.2 cm; Wt 113.4 kg
--- OUTSIDE RECORDS SUMMARY | 2020-11-05 19:54 | XMS ---
PreManage Notification: AMENA CRESPO Security Sales Agent Business Services Events No recent Security Events currently on file CRITERIA MET - Group Notification CARE PROVIDERS BRANDON CRESPO Physician Aquatic Physiotherapist 09/27/2016-Current PHONE: Unknown Renee has no Care Guidelines for this patient. Care History Substance Use/Overdose 04/23/2016 [facility] BE CAREFUL PRESCRIBING NARCOTICS. THIS PATIENT HAS A FAILED PAIN CONTRACT WITH PCP. HE RECEIVED HYDROCODONE FROM A [employer] AND THIS WAS FILLED AT [facility] ON 03/19/16. Medical/Surgical 01/24/2020 [facility] - PATIENT IS [facility] ELIGIBLE, \T\middot;\T\nbsp; PLEASE REFER PATIENT TO [facility] FOR NON EMERGENT MEDICAL NEEDS. \T\middot;\T\nbsp; [facility] CAN SEE PATIENTS SAME DAY FOR APTS IF PATIENT CALLS FIRST THING IN THE MORNING. E.D. VISIT COUNT (12 MO.) 5 [facility] TOTAL 5 NOTE: Visits indicate total known visits. ED/UCC VISIT TRACKING (12 MO.) 11/05/2020 19:46 [facility] [place] TYPE: Emergency COMPLAINT: - MULTIPLE BEE STINGS 09/16/2020 05:[address] [facility] [address] [facility] [place] TYPE: Emergency COMPLAINT: - IRREGULAR HEART BEAT, CHEST PAIN DIAGNOSES: - Old myocardial infarction - Precordial pain - Essential (primary) hypertension - Other long-term (current) drug therapy - Allergy status to narcotic agent 04/01/2020 18:49 [facility] [place] TYPE: Emergency COMPLAINT: - INJURED FINGER DIAGNOSES: - Contusion of right ring finger with damage to nail, initial encounter - Essential (primary) hypertension - Other long-term (current) drug therapy - Striking against or [...] - Allergy status to narcotic agent - COVID- - Bronchitis, not specified as acute or chronic - Essential (primary) hypertension INPATIENT VISIT TRACKING (12 MO.) 01/21/2020 20:16 [facility] [place] TYPE: Medical Surgical COMPLAINT: - HYPOXEMIA, COVID 19 DIAGNOSES: - Other long-term (current) drug therapy - Acute respiratory failure with hypoxia - Other viral pneumonia - Allergy status to narcotic agent - COVID-19 - Old myocardial infarction - Atherosclerotic heart disease of [place] coronary artery without angina pectoris - Shortness of breath - Allergy status to narcotic agent - Essential (primary) hypertension [email or web address]
== END 2020-11-05 20:06 | disposition home or self-care (01) ==
LOC: ED 19:46
DX: T63.461A Toxic effect of venom of wasps, accidental (unintentional), initial encounter (principal); I10 Essential (primary) hypertension; I25.2 Old myocardial infarction; Z88.5 Allergy status to narcotic agent; Z79.899 Other long term (current) drug therapy
CPT/HCPCS: 99282; Q0163

== ENCOUNTER 2021-04-24 09:57 | Emergency (ER) | payer OTHER ==
[~2021-04-24] VITALS: Ht 170.2 cm; Wt 113.4 kg
--- OUTSIDE RECORDS SUMMARY | 2021-04-24 10:00 | XMS ---
PreManage Notification: AMENA CRESPO Security Toolroom Helper Events No recent Security Events currently on file CRITERIA MET - Group Notification CARE PROVIDERS BRANDON CRESPO Physician Newspaper Clipper 09/27/2016-[facility] PHONE: Unknown [facility]/[place] 11/07/2020-[facility] PHONE: [phone] Renee has no Care Guidelines for this patient. Care History Medical/Surgical 01/24/2020 [facility] - PATIENT IS [facility] ELIGIBLE, \T\middot;\T\nbsp; PLEASE REFER PATIENT TO [facility] FOR NON EMERGENT MEDICAL NEEDS. \T\middot;\T\nbsp; [facility] CAN SEE PATIENTS SAME DAY FOR APTS IF PATIENT CALLS FIRST THING IN THE MORNING. Substance Use/Overdose 04/23/2016 [facility] BE CAREFUL PRESCRIBING NARCOTICS. THIS PATIENT HAS A FAILED PAIN CONTRACT WITH PCP. HE RECEIVED HYDROCODONE FROM A [employer] AND THIS WAS FILLED AT [facility] ON 03/19/16. E.D. VISIT COUNT (12 MO.) 3 [facility] TOTAL 3 NOTE: Visits indicate total known visits. 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
[2021-04-24] MEDS ORDERED: CEPHALEXIN500 MG PO (10:45)
== END 2021-04-24 10:54 | disposition home or self-care (01) ==
LOC: ED 09:57
DX: L03.312 Cellulitis of back [any part except buttock and flank] (principal); I10 Essential (primary) hypertension; I25.2 Old myocardial infarction; Z86.16 Personal history of COVID-19; Z88.5 Allergy status to narcotic agent; Z91.010 Allergy to peanuts; Z79.899 Other long term (current) drug therapy
CPT/HCPCS: 99283; A9270

== ENCOUNTER 2021-06-26 17:44 | Emergency (ER) | payer OTHER ==
[~2021-06-26] VITALS: Ht 170.2 cm; Wt 113.4 kg
--- OUTSIDE RECORDS SUMMARY | 2021-06-26 17:46 | XMS ---
PreManage Notification: AMENA CRESPO Security Sales Attendant Events No recent Security Events currently on file CRITERIA MET - Group Notification - [facility] C[facility] PROVIDERS BRANDON CRESPO Physician Psychology Teacher 09/27/2016-[facility] PHONE: Unknown [facility]/[place] 11/07/2020-[facility] PHONE: [phone] Renee has no Care Guidelines for this patient. Care History Substance Use/Overdose 04/23/2016 [facility] BE CAREFUL PRESCRIBING NARCOTICS. THIS PATIENT HAS A FAILED PAIN CONTRACT WITH PCP. HE RECEIVED HYDROCODONE FROM A [employer] [facility] AND THIS WAS FILLED AT [facility] ON 03/19/16. Medical/Surgical 01/24/2020 [facility] - PATIENT IS [facility] ELIGIBLE, \T\middot;\T\nbsp; PLEASE REFER PATIENT TO [facility] FOR NON EMERGENT MEDICAL NEEDS. \T\middot;\T\nbsp; [facility] CAN SEE PATIENTS SAME DAY FOR APTS IF PATIENT CALLS FIRST THING IN THE MORNING. E.D. VISIT COUNT (12 MO.) [address] [facility] TOTAL 4 NOTE: Visits indicate total known visits. 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 [facility] [place] TYPE: Emergency COMPLAINT: - IRREGULAR HEART BEAT, CHEST PAIN DIAGNOSES: - Old myocardial infarction - Precordial pain - Essential (primary) hypertension - Other custodial (current) drug therapy - Allergy status to narcotic agent INPATIENT VISIT TRACKING (12 MO.) No inpatient visits to display in this time frame [id number]
[2021-06-26] MEDS ORDERED: HYDROCODON-ACE1 EAC8 PO (18:21)
[2021-06-26] MEDS ORDERED: PREDNISONE20 MG PO (18:21)
[2021-06-26] MEDS ORDERED: CLINDAMYCIN HC300 MG PO (18:21)
== END 2021-06-26 19:06 | disposition home or self-care (01) ==
LOC: ED 17:44
DX: K04.7 Periapical abscess without sinus (principal); I10 Essential (primary) hypertension; I25.2 Old myocardial infarction; Z88.5 Allergy status to narcotic agent; Z79.899 Other long term (current) drug therapy; Z91.018 Allergy to other foods
CPT/HCPCS: 99282

== ENCOUNTER 2021-10-04 17:26 | Emergency (ER) | payer OTHER ==
[~2021-10-04] VITALS: Ht 170.2 cm; Wt 117.9 kg
[~2021-10-04 17:26] MED LIST changes: +CLINDAMYCIN HC300 MG PO; +PREDNISONE20 MG PO
--- OUTSIDE RECORDS SUMMARY | 2021-10-04 17:28 | XMS ---
PreManage Notification: AMENA CRESPO Security Dry Starch Supervisor Events No recent Security Events currently on file CRITERIA MET - PDMP - Group Notification CARE PROVIDERS BRANDON CRESPO Physician Automation Qa Lead 09/27/2016-[facility] PHONE: Unknown [facility]/[place] 11/07/2020-[facility] PHONE: [phone] Renee has no Care Guidelines for this patient. Care History Substance Use/Overdose 04/23/2016 [facility] BE CAREFUL PRESCRIBING NARCOTICS. THIS PATIENT HAS A FAILED PAIN CONTRACT WITH PCP. HE RECEIVED HYDROCODONE FROM A [employer] OBRIEN AND THIS WAS FILLED AT [facility] ON 03/19/16. Medical/Surgical 01/24/2020 [facility] - PATIENT IS [facility] ELIGIBLE, \T\middot;\T\nbsp; PLEASE REFER PATIENT TO [facility] FOR NON EMERGENT MEDICAL NEEDS. \T\middot;\T\nbsp; [facility] CAN SEE PATIENTS SAME DAY FOR APTS IF PATIENT CALLS FIRST THING IN THE MORNING. E.D. VISIT COUNT (12 MO.) [address] [facility] TOTAL 5 NOTE: Visits indicate total known visits. ED/UCC VISIT TRACKING (12 MO.) 10/04/2021 17:27 [facility] [place] TYPE: Emergency COMPLAINT: - ALLERGIC REACTION 07/24/2021 21:35 [facility] [place] TYPE: Emergency COMPLAINT: - RIGHT ARM PAIN/ NO INJ DIAGNOSES: - Allergy status to narcotic agent - Allergy to other foods - Other senior care (current) drug therapy - Old myocardial infarction - [facility] of occurrence of the external cause - Pain in right elbow - Essential (primary) hypertension - Slipping, tripping and stumbling without falling, unspecified, initial encounter - Other enthesopathies, not elsewhere classified 06/26/2021 17:44 [facility] [place] TYPE: Emergency COMPLAINT: - DENTAL PAIN DIAGNOSES: - Other senior care (current) drug therapy - Allergy status to narcotic agent - Allergy to other foods - Other specified disorders of teeth and supporting structures - Essential (primary) hypertension - Old myocardial infarction - Periapical abscess without sinus 04/24/2021 09:58 [facility] TYPE: Emergency COMPLAINT: - SOB DUE TO SPIDER BITE DIAGNOSES: - Personal history of COVID-19 - Cellulitis of back [any part except buttock] - Pain in thoracic spine - Other senior care (current) drug therapy - Allergy status to narcotic agent - Allergy to peanuts - Essential (primary) hypertension - Old myocardial infarction 11/05/2020 19:[address] 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
[2021-10-04] MEDS ORDERED: ALL DAY ALLERGY10 M3 PO (20:23)
== END 2021-10-04 20:43 | disposition home or self-care (01) ==
LOC: ED 17:26
DX: T63.441A Toxic effect of venom of bees, accidental (unintentional), initial encounter (principal); I10 Essential (primary) hypertension; I25.2 Old myocardial infarction; Z88.5 Allergy status to narcotic agent; Z79.899 Other long term (current) drug therapy
CPT/HCPCS: 96374; 96375; 99283-25; J1100; J1885

== ENCOUNTER 2021-12-18 21:13 | Emergency (ER) | payer OTHER ==
[~2021-12-18] VITALS: Ht 170.2 cm; Wt 113.5 kg
[~2021-12-18 21:13] MED LIST changes: +ALL DAY ALLERGY10 M3 PO
--- OUTSIDE RECORDS SUMMARY | 2021-12-18 21:17 | XMS ---
PreManage Notification: AMENA CRESPO Security Meter/Relay Technician Events No recent Security Events currently on file CRITERIA MET - Group Notification [facility] BRAND[facility]ESPO Physician Energy Consultant 09/27/2016-[facility] PHONE: Unknown [facility]/[place] 11/07/2020-[facility] PHONE: [phone] Renee has no Care Guidelines for this patient. Care History Medical/Surgical 01/24/2020 [facility] - PATIENT IS [facility] ELIGIBLE, \T\middot;\T\nbsp; PLEASE REFER PATIENT TO [facility] FOR NON EMERGENT MEDICAL NEEDS. \T\middot;\T\nbsp; [facility] CAN SEE PATIENTS SAME DAY FOR APTS IF PATIENT CALLS FIRST THING IN THE MORNING. Substance Use/Overdose 04/23/2016 [facility] BE CAREFUL PRESCRIBING NARCOTICS. THIS PATIENT HAS A FAILED PAIN CONTRACT WITH PCP. HE RECEIVED HYDROCODONE FROM A [employer] AND THIS WAS FILLED AT [facility] ON 03/19/16. E.D. VISIT COUNT (12 MO.) [address] [facility] TOTAL 5 NOTE: Visits indicate total known visits. 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 - Allergy status to narcotic agent - Old myocardial infarction - Toxic effect of venom of bees, accidental (unintentional), initial encounter - Essential (primary) hypertension 07/24/2021 21:35 [facility] [place] TYPE: Emergency COMPLAINT: - RIGHT ARM PAIN/ NO INJ DIAGNOSES: - Slipping, tripping and stumbling without falling, unspecified, initial encounter - Pain in right elbow - Old myocardial infarction - Allergy to other foods - Other enthesopathies, not elsewhere classified - Essential (primary) hypertension - [facility] the [facility] of occurrence of the external cause - Other mcc (current) drug therapy - Allergy status to narcotic agent 06/26/2021 17:44 [facility] [place] TYPE: Emergency COMPLAINT: - DENTAL PAIN DIAGNOSES: - Old myocardial infarction - Other specified disorders of teeth and supporting structures - Allergy status to narcotic agent - Periapical abscess without sinus - Essential (primary) hypertension - Allergy to other foods - 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
[2021-12-18] MEDS ORDERED: ULTRAM50 MG PO (21:55)
== END 2021-12-18 22:11 | disposition home or self-care (01) ==
LOC: ED 21:13
DX: S90.31XA Contusion of right foot, initial encounter (principal); W20.8XXA Other cause of strike by thrown, projected or falling object, initial encounter; I10 Essential (primary) hypertension; Z88.5 Allergy status to narcotic agent; Z91.018 Allergy to other foods; Z79.899 Other long term (current) drug therapy
CPT/HCPCS: 73630; A9270

== ENCOUNTER 2022-02-17 20:45 | Emergency (ER) | payer OTHER ==
[~2022-02-17] VITALS: Ht 170.2 cm; Wt 118.8 kg
--- OUTSIDE RECORDS SUMMARY | 2022-02-17 20:48 | XMS ---
PreManage Notification: AMENA CRESPO Security Senior Air Director Events No recent Security Events currently on file CRITERIA MET - Group Notification - [facility] CARE PROVIDERS BRANDON CRESPO Physician Brimmer Blocker 09/27/2016-[facility] PHONE: Unknown [facility]/[place] 11/07/2020-[facility] PHONE: [phone] Renee has no Care Guidelines for this patient. Care History Medical/Surgical 01/24/2020 [facility] - PATIENT IS [facility] ELIGIBLE, \T\middot;\T\nbsp; PLEASE REFER PATIENT TO [facility] FOR NON EMERGENT MEDICAL NEEDS. \T\middot;\T\nbsp; [facility] CAN SEE PATIENTS SAME DAY FOR APTS IF PATIENT CALLS FIRST THING IN THE MORNING. Substance Use/Overdose 04/23/2016 [facility] BE CAREFUL PRESCRIBING NARCOTICS. THIS PATIENT HAS A FAILED PAIN CONTRACT WITH PCP. HE RECEIVED HYDROCODONE FROM A [employer] AND THIS WAS FILLED AT [facility] ON 03/19/16. E.D. VISIT COUNT (12 MO.) [address] [facility] [address] TOTAL 7 NOTE: Visits indicate total known visits. 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 - Allergy status to narcotic agent - Old myocardial infarction - Hemorrhage of anus and rectum - Essential (primary) hypertension 12/18/2021 21:13 [facility] [place] TYPE: Emergency COMPLAINT: - RT FOOT INJURY DIAGNOSES: - Contusion of right foot, initial encounter - Essential (primary) hypertension - Pain in right foot - Other cause of strike by thrown, projected or falling object, initial encounter - Allergy to other foods - Allergy status to narcotic agent - Other snf (current) drug therapy 10/04/2021 17:27 [facility] TYPE: Emergency COMPLAINT: - ALLERGIC REACTION DIAGNOSES: - 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 - Allergy status to narcotic agent - Old myocardial infarction - Toxic effect of venom of bees, accidental (unintentional), initial encounter - Essential (primary) hypertension 07/24/2021 21:35 [facility] TYPE: Emergency COMPLAINT: - RIGHT ARM PAIN/ NO INJ DIAGNOSES: - Pain in right elbow - Old myocardial infarction - Allergy to other foods - Other enthesopathies, not elsewhere classified - Essential (primary) hypertension - [place] as the place of occurrence of the external cause - Other snf (current) drug therapy - Allergy status to narcotic agent - Slipping, tripping and stumbling without falling, unspecified, initial encounter 06/26/2021 17:44 [facility] TYPE: Emergency COMPLAINT: - DENTAL PAIN DIAGNOSES: - Old myocardial infarction - Other specified disorders of teeth and supporting structures - Allergy status to narcotic agent - Periapical abscess without sinus - Essential (primary) hypertension - Allergy to other foods - Other snf (current) drug therapy 04/24/2021 09:58 [facility] TYPE: Emergency COMPLAINT: - SOB DUE TO SPIDER BITE DIAGNOSES: - Allergy to peanuts - 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
[2022-02-17] MEDS ORDERED: AMOXICILLIN500 MG PO (21:36)
== END 2022-02-17 21:49 | disposition home or self-care (01) ==
LOC: ED 20:45
DX: K04.7 Periapical abscess without sinus (principal); I10 Essential (primary) hypertension; I25.2 Old myocardial infarction; Z91.018 Allergy to other foods; Z88.5 Allergy status to narcotic agent; Z79.899 Other long term (current) drug therapy
CPT/HCPCS: 99282

== ENCOUNTER 2023-11-09 14:09 | Emergency (ER) | payer OTHER ==
[~2023-11-09] VITALS: Ht 170.2 cm; Wt 113.6 kg
[~2023-11-09 14:09] MED LIST changes: +AMOXICILLIN500 MG PO
[2023-11-09] MEDS ORDERED: OXYCODONE/APAP 5/325 TAB PO ONE (14:30)
[2023-11-09] MEDS ORDERED: VITAMIN D350 MC4 PO (14:30)
[2023-11-09] MEDS ORDERED: PERCOCET 7.5-31 EACH PO ×2 (15:42)
[2023-11-09 15:50] VITALS: BP 185/111
== END 2023-11-09 15:52 | disposition home or self-care (01) ==
LOC: ED 14:09
DX: S93.401A Sprain of unspecified ligament of right ankle, initial encounter (principal); X50.1XXA Overexertion from prolonged static or awkward postures, initial encounter; I10 Essential (primary) hypertension; I25.2 Old myocardial infarction; Z88.5 Allergy status to narcotic agent; Z91.018 Allergy to other foods; Z79.899 Other long term (current) drug therapy
CPT/HCPCS: 73610; 99283

== ENCOUNTER 2023-11-14 13:57 | Emergency (ER) | payer OTHER ==
[~2023-11-14] VITALS: Ht 170.2 cm; Wt 113.0 kg
[~2023-11-14 13:57] MED LIST changes: +PERCOCET 7.5-31 EACH PO; +VITAMIN D350 MC4 PO
[2023-11-14] MEDS ORDERED: ONDANSETRON ODT8 MG PO (15:14)
[2023-11-14] MEDS ORDERED: HYDROCODON-ACE1 EA10 PO (15:14)
[2023-11-14] MEDS ORDERED: OXYCODONE/APAP 10/325 TAB PO ONE (15:15)
[2023-11-14 15:27] VITALS: BP 181/105
== END 2023-11-14 15:27 | disposition home or self-care (01) ==
LOC: ED 13:57
DX: S93.401A Sprain of unspecified ligament of right ankle, initial encounter (principal); X50.1XXA Overexertion from prolonged static or awkward postures, initial encounter; I10 Essential (primary) hypertension; I25.2 Old myocardial infarction; Z88.5 Allergy status to narcotic agent; Z91.018 Allergy to other foods; Z79.899 Other long term (current) drug therapy
CPT/HCPCS: 73610; 99283

== ENCOUNTER 2023-12-29 18:40 | Emergency (ER) | payer OTHER ==
[~2023-12-29] VITALS: Ht 170.2 cm; Wt 114.3 kg
[~2023-12-29 18:40] MED LIST changes: +HYDROCODON-ACE1 EA10 PO; +ONDANSETRON ODT8 MG PO
[2023-12-29] MEDS ORDERED: HYDROCODON-ACE1 EA10 PO (22:33)
[2023-12-29] MEDS ORDERED: CEPHALEXIN500 M1 PO (22:33)
[2023-12-29] MEDS ORDERED: HYDROCODONE BIT/ACETAMINOPHEN 5/325 MG 1 TAB HOME.PACK PO ONE (22:45)
[2023-12-29] MEDS ORDERED: CEPHALEXIN MONOHYDRATE 500 MG HOME.PACK PO ONE (22:45)
[2023-12-29 22:57] VITALS: BP 167/102
== END 2023-12-29 22:57 | disposition home or self-care (01) ==
LOC: ED 18:40
DX: K02.9 Dental caries, unspecified (principal); S02.5XXA Fracture of tooth (traumatic), initial encounter for closed fracture; I10 Essential (primary) hypertension; I25.2 Old myocardial infarction; Z86.16 Personal history of COVID-19; Z91.018 Allergy to other foods; Z88.5 Allergy status to narcotic agent; Z79.899 Other long term (current) drug therapy; X58.XXXA Exposure to other specified factors, initial encounter
CPT/HCPCS: 99282; A9270

== ENCOUNTER 2024-02-04 01:09 | Emergency (ER) | payer OTHER ==
[~2024-02-04] VITALS: Ht 170.2 cm; Wt 108.0 kg
[~2024-02-04 01:09] MED LIST changes: +CEPHALEXIN500 M1 PO
[2024-02-04] MEDS ORDERED: VENTOLIN HFA18 GM INH (02:08)
[2024-02-04] MEDS ORDERED: methylPREDNISolone 4 MG HOME.PACK PO ONE (02:15)
[2024-02-04] MEDS ORDERED: AZITHROMYCIN 250 MG HOME.PACK PO ONE (02:15)
[2024-02-04] MEDS ORDERED: HYDROCODONE BIT/ACETAMINOPHEN 5/325 MG 1 TAB HOME.PACK PO ONE (02:15)
[2024-02-04] MEDS ORDERED: KETOROLAC TROMETHAMINE 60 MG/2 ML VIAL IM ONE (02:15)
[2024-02-04 02:33] VITALS: BP 152/103
== END 2024-02-04 02:34 | disposition home or self-care (01) ==
LOC: ED 01:09
DX: J40 Bronchitis, not specified as acute or chronic (principal); K02.9 Dental caries, unspecified; I10 Essential (primary) hypertension; I25.2 Old myocardial infarction; Z88.0 Allergy status to penicillin; Z88.5 Allergy status to narcotic agent; Z91.018 Allergy to other foods
CPT/HCPCS: 71045; 87502; 87651; 96372; 99283-25; A9270; J1885; U0002

== ENCOUNTER 2024-05-03 21:43 | Emergency (ER) | payer OTHER ==
[~2024-05-03] VITALS: Ht 170.2 cm; Wt 119.7 kg
[2024-05-03] MEDS ORDERED: METFORMIN HCL500 M1 PO (22:00)
[2024-05-03] MEDS ORDERED: ATORVASTATIN CA20 MG PO (22:00)
[2024-05-03] MEDS ORDERED: LOSARTAN POTASS25 MG PO (22:00)
[2024-05-03] MEDS ORDERED: CEPHALEXIN MONOHYDRATE 500 MG HOME.PACK PO ONE (22:15)
[2024-05-03] MEDS ORDERED: HYDROCODONE BIT/ACETAMINOPHEN 5/325 MG 1 TAB HOME.PACK PO ONE (22:15)
[2024-05-03 22:35] VITALS: BP 196/107
== END 2024-05-03 22:36 | disposition home or self-care (01) ==
LOC: ED 21:43
DX: S02.5XXA Fracture of tooth (traumatic), initial encounter for closed fracture (principal); K04.7 Periapical abscess without sinus; I10 Essential (primary) hypertension; I25.2 Old myocardial infarction; Z86.16 Personal history of COVID-19; Z88.0 Allergy status to penicillin; Z91.018 Allergy to other foods; Z88.5 Allergy status to narcotic agent; Z79.84 Long term (current) use of oral hypoglycemic drugs; Z79.899 Other long term (current) drug therapy; X58.XXXA Exposure to other specified factors, initial encounter
CPT/HCPCS: 99282; A9270

== ENCOUNTER 2024-05-09 23:43 | Emergency (ER) | payer OTHER ==
[~2024-05-09] VITALS: Ht 170.2 cm; Wt 119.1 kg
[~2024-05-09 23:43] MED LIST changes: +ATORVASTATIN CA20 MG PO; +LOSARTAN POTASS25 MG PO; +METFORMIN HCL500 M1 PO
[2024-05-10] MEDS ORDERED: CEPHALEXIN500 M1 PO (00:10)
[2024-05-10] MEDS ORDERED: HYDROCODON-ACE1 EA10 PO (00:10)
[2024-05-10] MEDS ORDERED: CEPHALEXIN MONOHYDRATE 500 MG CAP PO ONE (00:15)
[2024-05-10] MEDS ORDERED: HYDROCODONE BIT/ACETAMINOPHEN 5/325 MG 1 TAB HOME.PACK PO ONE (00:15)
[2024-05-10 00:28] VITALS: BP 1194/94
== END 2024-05-10 00:28 | disposition home or self-care (01) ==
LOC: ED 23:43
DX: K08.89 Other specified disorders of teeth and supporting structures (principal); I10 Essential (primary) hypertension; Z88.0 Allergy status to penicillin
CPT/HCPCS: 99282; A9270

== ENCOUNTER 2024-05-14 18:54 | Emergency (ER) | payer OTHER ==
[~2024-05-14] VITALS: Ht 170.2 cm; Wt 120.0 kg
[2024-05-14 19:37] LABS: BASOPHILS 0.5 % (0-2); EOSINOPHILS 1.5 % (0-6); HEMATOCRIT 42.9 % (35.0-50.0); HEMOGLOBIN 15.1 g/dL (12.0-18.0); MCHC 35.3 g/dl (30-36); MCV 90.9 fl (81-99); MONOCYTES 5.4 % (0-12); NEUTROPHILS 68.6 % (39-80); PLATELET COUNT 259 K/uL (140-440); RBC 4.72 M/ul (4.3-5.7); RDW 13.7 (10.5-15.0)
[2024-05-14] MEDS ORDERED: NITROGLYCERIN PACKET TOP ONE (19:45)
[2024-05-14] MEDS ORDERED: ASPIRIN 81 MG CHEW PO ONE (19:45)
[2024-05-14 19:53] LABS: ALBUMIN/GLOBULIN RATIO 1.11 (1.1-2.4); ANION GAP 10.5 (7-21); BILIRUBIN, TOTAL 0.6 mg/dL (0.2-1.0); BUN/CREATININE RATIO 12.79 (6.0-28.6); CALCIUM 8.9 mg/dL (8.5-10.1); CREATININE, SERUM 0.86 mg/dL (0.70-1.30); MAGNESIUM 1.8 mg/dL (1.8-2.4); POTASSIUM 3.5 mmol/L (3.5-5.1); PROTEIN, TOTAL 7.6 g/dL (6.4-8.2)
[2024-05-14] MEDS ORDERED: CYCLOBENZAPRINE10 MG PO (21:02)
[2024-05-14] MEDS ORDERED: CYCLOBENZAPRINE HCL 10 MG HOME.PACK PO ONE (21:15)
[2024-05-14 21:18] VITALS: BP 151/85
--- NOTE | 2024-05-15 15:50 | EKG ---
[facility] [address] [facility] [facility] [place] [address] Signed Normal sinus rhythm Minimal voltage criteria for LVH, may be normal variant ( [place] product ) T wave abnormality, consider lateral ischemia Abnormal ECG When compared with ECG of 14-MAY-2024 19:06, (Unconfirmed) Sinus rhythm has replaced Junctional rhythm Confirmed by Romain Love DO ([id number]) on 05/15/2024 3:50:35 PM Electronically Signed By: ROMAIN LOVE DO 05/15/24 1550 PATIENT NAME: AMENA CRESPO SIDRA Electrocardiogram DATE OF : 70 PHYSICIAN: ROMAIN LOVE DO REPORT #: [id number] REPORT IS CONFIDENTIAL AND NOT TO BE RELEASED WITHOUT AUTHORIZATION
--- NOTE | 2024-05-15 15:50 | EKG ---
[facility] [address] [facility] [place] [address] Signed Accelerated Junctional rhythm with retrograde conduction Minimal voltage criteria for LVH, may be normal variant ( [place] product ) T wave abnormality, consider lateral ischemia Abnormal ECG When compared with ECG of 16-SEP-2020 05:39, Junctional rhythm has replaced Sinus rhythm T wave inversion now evident in Lateral leads Confirmed by Rmaos Love DO ([id number]) on 05/15/2024 3:50:24 PM Electronically Signed By: RAMOS LOVE DO 05/15/24 1550 PATIENT NAME: AMENA CRESPO Electrocardiogram DATE OF : 70 PHYSICIAN: RAMOS LOVE DO REPORT #: [id number] REPORT IS CONFIDENTIAL AND NOT TO BE RELEASED WITHOUT AUTHORIZATION
== END 2024-05-14 21:20 | disposition home or self-care (01) ==
LOC: ED 18:54
PROVIDERS: Family Medicine
DX: R07.89 Other chest pain (principal); I10 Essential (primary) hypertension; I25.2 Old myocardial infarction; Z86.16 Personal history of COVID-19; Z88.0 Allergy status to penicillin; Z91.018 Allergy to other foods; Z88.5 Allergy status to narcotic agent; Z79.84 Long term (current) use of oral hypoglycemic drugs; Z79.899 Other long term (current) drug therapy
CPT/HCPCS: 36415; 71045; 80053; 83735; 83880; 84484; 85025; 93005; 93010; 99285-25; A9270

== ENCOUNTER 2024-05-23 01:02 | Emergency (ER) | payer OTHER ==
[~2024-05-23] VITALS: Ht 170.2 cm; Wt 119.0 kg
[2024-05-23 02:58] LABS: CORONAVIRUS COVID-19 AG NEGATIVE (NEGATIVE); INFLUENZA A AG NEGATIVE (NEGATIVE); INFLUENZA B AG NEGATIVE (NEGATIVE)
[2024-05-23] MEDS ORDERED: AZITHROMYCIN 250 MG HOME.PACK PO ONE (03:30)
[2024-05-23 03:31] VITALS: BP 177/101
[2024-05-25] MEDS ORDERED: CEPHALEXIN500 MG PO (04:01)
[2024-05-25] MEDS ORDERED: CEPHALEXIN500 M1 PO (04:44)
== END 2024-05-23 03:30 | disposition home or self-care (01) ==
LOC: ED 01:02
PROVIDERS: Emergency Medicine
DX: H66.91 Otitis media, unspecified, right ear (principal); J06.9 Acute upper respiratory infection, unspecified; I10 Essential (primary) hypertension; I25.2 Old myocardial infarction; Z79.84 Long term (current) use of oral hypoglycemic drugs; Z79.899 Other long term (current) drug therapy; Z88.0 Allergy status to penicillin; Z91.018 Allergy to other foods; Z88.5 Allergy status to narcotic agent
CPT/HCPCS: 36415; 99283

== ENCOUNTER 2024-07-21 21:50 | Emergency (ER) | payer OTHER ==
[~2024-07-21] VITALS: Ht 170.2 cm; Wt 115.0 kg
[2024-07-21] MEDS ORDERED: HYDROCODONE BIT/ACETAMINOPHEN 5/325 MG 1 TAB HOME.PACK PO ONE (23:15)
[2024-07-21 23:20] VITALS: BP 178/100
== END 2024-07-21 23:20 | disposition home or self-care (01) ==
LOC: ED 21:50
DX: S02.5XXA Fracture of tooth (traumatic), initial encounter for closed fracture (principal); K02.9 Dental caries, unspecified; I10 Essential (primary) hypertension; I25.2 Old myocardial infarction; Z88.0 Allergy status to penicillin; Z91.010 Allergy to peanuts; Z88.5 Allergy status to narcotic agent; Z79.899 Other long term (current) drug therapy; Z79.84 Long term (current) use of oral hypoglycemic drugs; X58.XXXA Exposure to other specified factors, initial encounter
CPT/HCPCS: 99282; A9270

== ENCOUNTER 2024-11-10 03:45 | Emergency (ER) | payer OTHER ==
[~2024-11-10] VITALS: Ht 170.2 cm; Wt 115.0 kg
[2024-11-10] MEDS ORDERED: BUPIVACAINE 0.25% W/ EPI 30 ML SDV DENTAL PRN (04:00)
[2024-11-10] MEDS ORDERED: IBUPROFEN 800 MG TAB PO ONE (04:15)
[2024-11-10] MEDS ORDERED: ALBUTEROL SULFATE 8 GM HOME.PACK INH ONE (04:15)
[2024-11-10] MEDS ORDERED: ALBUTEROL/IPRATROPIUM 3 ML NEB INH ONE (04:15)
[2024-11-10] MEDS ORDERED: CLEOCIN HCL300 MG PO (04:19)
[2024-11-10 04:20] VITALS: BP 161/101
== END 2024-11-10 04:23 | disposition home or self-care (01) ==
LOC: ED 03:45
DX: K04.7 Periapical abscess without sinus (principal); J06.9 Acute upper respiratory infection, unspecified; I10 Essential (primary) hypertension; I25.2 Old myocardial infarction; Z79.84 Long term (current) use of oral hypoglycemic drugs; Z79.899 Other long term (current) drug therapy; Z88.0 Allergy status to penicillin; Z88.5 Allergy status to narcotic agent; Z91.018 Allergy to other foods
CPT/HCPCS: 64400; 94640; 99283; A9270

== ENCOUNTER 2024-11-14 22:36 | Emergency (ER) | payer OTHER ==
[~2024-11-14] VITALS: Ht 170.2 cm; Wt 112.9 kg
[~2024-11-14 22:36] MED LIST changes: +CLEOCIN HCL300 MG PO
[2024-11-14] MEDS ORDERED: diazePAM 10 MG/2 ML SYR IM ONE (23:15)
[2024-11-14] MEDS ORDERED: KETOROLAC TROMETHAMINE 60 MG/2 ML VIAL IM ONE (23:15)
[2024-11-15] MEDS ORDERED: CYCLOBENZAPRINE HCL 10 MG HOME.PACK PO ONE ×2 (00:30→00:32)
[2024-11-15] MEDS ORDERED: methylPREDNISolone 4 MG HOME.PACK PO ONE ×2 (00:30→00:32)
[2024-11-15] MEDS ORDERED: predniSONE 20 MG TAB PO ONE (00:30)
[2024-11-15 00:41] VITALS: BP 163/93
== END 2024-11-15 00:42 | disposition home or self-care (01) ==
LOC: ED 22:36
DX: S16.1XXA Strain of muscle, fascia and tendon at neck level, initial encounter (principal); S39.012A Strain of muscle, fascia and tendon of lower back, initial encounter; I10 Essential (primary) hypertension; I25.2 Old myocardial infarction; V89.2XXA Person injured in unspecified motor-vehicle accident, traffic, initial encounter; Z79.84 Long term (current) use of oral hypoglycemic drugs; Z79.899 Other long term (current) drug therapy; Z88.0 Allergy status to penicillin; Z91.010 Allergy to peanuts; Z88.5 Allergy status to narcotic agent
CPT/HCPCS: 72040; 72100; 96372; 99283; J1885; J3360; J7512